=== PATIENT | female | born 1955 | race Caucasian/White ===

== ENCOUNTER 2019-04-01 06:55 | Day surgery (SDC) | payer OTHER ==
[2019-03-29 13:16] VITALS: BMI 32.5
[~2019-04-01] VITALS: Ht 162.6 cm; Wt 84.2 kg
[2019-04-01] VITALS (10 sets, daily range): BP systolic 123–159; BP diastolic 54–75; PULSE 42–46; RESP 11–18; Ht 162.6 cm; Wt 84.2 kg
[~2019-04-01 06:55] MED LIST: DIVA-16 PO; FLUO20CA38 PO; GLYB5TAB3 PO; LEVO100T8 PO; LOVA20TA PO; METF-480 PO; MIRT30TA5 PO; THIO5CAP2 PO; TRAM50TA2 PO
[2019-04-01] MEDS ORDERED: SOD CHLORIDE 0.9% 1,000 ML IV ONE (07:30)
[2019-04-01] MEDS ORDERED: CEFAZOLIN 2 GM/50 ML (PMX) 50 ML IVPB ONE (07:30)
[2019-04-01] MEDS ORDERED: GLIP5TAB13 PO (08:36)
[2019-04-01] MEDS ORDERED: NOVMIX SC (08:37)
[2019-04-01] MEDS ORDERED: LANT3I SC (08:37)
[2019-04-01] MEDS ORDERED: METF850T13 PO (08:38)
[2019-04-01] MEDS ORDERED: FLUO40CA10 PO (08:39)
[2019-04-01] MEDS ORDERED: THIO5CAP2 PO (08:40)
[2019-04-01] MEDS ORDERED: DIVA-73 PO (08:40)
[2019-04-01] MEDS ORDERED: ASPI81TA52 PO (08:41)
[2019-04-01] MEDS ORDERED: FURO20TA3 PO (08:41)
[2019-04-01] MEDS ORDERED: MULTI PO (08:42)
[2019-04-01] MEDS ORDERED: LOSA100T15 PO (08:42)
[2019-04-01] MEDS ORDERED: ATOR40TA68 PO (08:43)
[2019-04-01] MEDS ORDERED: CLOP75TA27 PO (08:44)
[2019-04-01] MEDS ORDERED: ERGO2000 PO (08:45)
[2019-04-01] MEDS ORDERED: MIRT30TA5 PO (08:46)
[2019-04-01] MEDS ORDERED: TOPI200T8 PO (08:47)
[2019-04-01] MEDS ORDERED: GABA300C16 PO (08:48)
[2019-04-01] MEDS ORDERED: LEVO100T82 PO (08:49)
[2019-04-01] MEDS ORDERED: SULI200T3 PO (08:50)
[2019-04-01] MEDS ORDERED: BUPIVACAINE 0.25% (MPF) 30 ML INJ ONE (10:19)
--- NOTE | 2019-04-01 10:19 | PREAC ---
Date/Time of Note Date/Time of Note DATE: 04/01/19 TIME: 10:17 Anesthesia Eval and Record Evaluation Time Pre-Procedure Interview DATE: 04/01/19 TIME: 10:17 Age 64 Sex female NPO: 8 hrs Preoperative diagnosis neck mass Planned procedure excision of neck mass Past Medical History Past Medical History: Includes Cardio: Dyslipidemia, CAD Endo: Diabetes, Hypothyroid Musculoskeletal: Osteoarthritis Surgery & Anesthesia Issues No known issue Meds Anticoagulation: Yes Beta Sarah within 24 hr: No Reason Beta Sarah not given: Pt. not on B-Sarah Reported Medications Sulindac* (Clinoril*) 200 Mg Tablet, 200 MG PO BID, TAB 04/01/19 Levothyroxine Sodium* (Levoxyl*) 100 Mcg Tablet, 100 MCG PO BEFORE BREAKFAST, #30 TAB 04/01/19 Gabapentin* (Gabapentin*) 300 Mg Capsule, 1800 MG PO QHS, #60 CAP 04/01/19 Topiramate* (Topiramate*) 200 Mg Tablet, 200 MG PO BID, TAB 04/01/19 Mirtazapine* (Mirtazapine*) 30 Mg Tablet, 30 MG PO HS, TAB 04/01/19 Ergocalciferol (Vitamin D2) (VITAMIN D2) 2,000 Unit Tablet, 2000 UNIT PO DAILY, TAB 04/01/19 Clopidogrel Bisulfate (Clopidogrel) 75 Mg Tablet, 75 MG PO DAILY, #30 TAB 04/01/19 Atorvastatin* (Atorvastatin*) 40 Mg Tablet, 40 MG PO QHS, #30 TAB 04/01/19 Losartan Potassium* (Losartan Potassium*) 100 Mg Tablet, 100 MG PO DAILY, TAB 04/01/19 Multivitamins* (Theragran*) 1 Tab Tab, 1 TAB PO DAILY, TAB 04/01/19 Aspirin (Low Dose Aspirin) 81 Mg Tablet.dr, 81 MG PO DAILY, #30 TAB 04/01/19 Furosemide* (Furosemide*) 20 Mg Tablet, 20 MG PO DAILY, #60 TAB 04/01/19 Thiothixene* (Navane*) 5 Mg Cap, 5 MG PO DAILY, CAP 04/01/19 Divalproex Sodium* (Depakote ER*) 250 Mg Tabsr, 1500 MG PO QHS, #90 TAB.SA 04/01/19 Fluoxetine Hcl* (Prozac*) 40 Mg Capsule, 40 MG PO DAILY, CAP 04/01/19 Metformin Hcl* (Metformin Hcl*) 850 Mg Tablet, 850 MG PO WITH BREAKFAST DINNE, #60 TAB 04/01/19 Insulin Glargine* (Lantus*) 100 Unit/Ml Soln, 100 UNIT SC BID, #1 VIAL 04/01/19 Insulin Aspart (Novolog Mix (70/30)) 100 Units/Ml Soln, 30 SC BID, VIAL 04/01/19 Glipizide* (Glipizide*) 5 Mg Tablet, 5 MG PO BID, TAB 04/01/19 Discontinued Reported Medications Fluoxetine Hcl* (Prozac*) 20 Mg Capsule, 20 MG PO 2 TABS DAILY 03/31/11 Divalproex Sodium* (Divalproex Sodium*) 500 Mg Tablet.dr, 500 MG PO TID 03/31/11 Mirtazapine* (Mirtazapine*) 30 Mg Tablet, 30 MG PO HS 03/31/11 Tramadol HCl (Tramadol HCl) 50 Mg Tablet, 50 MG PO Q6 03/31/11 Thiothixene* (Navane*) 5 Mg Cap, 5 MG PO PRN 03/31/11 Lovastatin* (Lovastatin*) 20 Mg Tablet, 20 MG PO DAILY 03/31/11 Levothyroxine Sodium* (Levothyroxine Sodium*) 100 Mcg Tablet, 100 MCG PO DAILY 03/31/11 Glyburide* (Glyburide*) 5 Mg Tablet, 5 MG PO 2 TABS BID 03/31/11 Metformin* (Glucophage*) 850 Mg Tablet, 850 MG PO TID 03/31/11 Current Medications Sodium Chloride 1,000 ml @ 75 mls/hr [id number] ONCE IV ; Start 04/01/19 at 07:30; Stop 04/01/19 at 20:49 Meds reviewed: Yes Allergies Uncoded Allergies: CLOTH TAPE, PAPER TAPE (Allergy, Unknown, rash, 04/01/19) Allergies Reviewed: Yes Labs/Studies Labs Reviewed: Reviewed by anesthesiologist Result Diagram: 04/01/1982304/01/1924 Laboratory Tests 04/01/19 08:24 test: N/A Pre-procedure Exam Last vitals Vital Signs Date Temp Pulse Resp B/P (MAP) Pulse Ox O2 O2 Flow FiO2 Time Delivery Rate 04/01/19 97.8 42 18 135/63 98 09:33 (87) Airway: Adequate mouth opening, Adequate thyromental dist Mallampati: Mallampati IV Teeth: Normal Lung: Normal Heart: Normal ASA Physical Status ASA physical status: 3 Emergency: None Pre-operative Attestations Prior to commencing anesthesia and surgery, the patient was re-evaluated, there was verification of: *The patient's identity *The results of appropriate recent lab work and preoperative vital signs *The above evaluation not changing prior to induction *Anesthetic plan, risk benefits, alternative and complications discussed with patient/family; questions answered; patient/family understands, accepts and wishes to proceed. CAMRYN TROY DO Apr 01, 2019 10:19
[2019-04-01] MEDS ORDERED: HYDROmorphONE 1 MG/5 ML IV SYRINGE IV PRN ×2 (10:30)
[2019-04-01] MEDS ORDERED: ONDANSETRON 4 MG INJ IV PRN (10:30)
[2019-04-01] MEDS ORDERED: hydrALAzine 20 MG INJ IV PRN (10:30)
[2019-04-01] MEDS ORDERED: LABETALOL HCL 20MG INJ IV PRN (10:30)
[2019-04-01] MEDS ORDERED: FENTAnyl 50 MCG/ML VIAL ONE (10:41)
[2019-04-01] MEDS ORDERED: MIDAZOLAM 1 MG/ML 2 ML INJ ONE (10:42)
[2019-04-01] MEDS ORDERED: KETAMINE (50 MG/ML) 10 ML VIAL ONE (10:42)
[2019-04-01] MEDS ORDERED: LIDOCAINE 2% (MDV) 20 ML INJ ONE (10:51)
[2019-04-01] MEDS ORDERED: HYDROCODONE/APAP (5/325) TAB PO ONE (11:00)
--- NOTE | 2019-04-01 11:01 | OPR ---
Date/Time of Note Date/Time of Note DATE: 04/01/19 TIME: 10:58 Operative Report Procedure Date: Apr 01, 2019 Preoperative Diagnosis left posterior neck mass Postoperative Diagnosis same Operation/Procedure Performed 1. excision of left posterior neck mass 3 cm mass 3 cm incision 2. localized adjacent tissue transfer with the use of skin flaps 6 sq cm defect of neck 3. therapeutic injection of subcutaneous local anesthesia Surgeon see signature line Nan[employer] Engineering Technician none Anesthesia Type: MAC Estimated Blood Loss: 0 - 10 ml's Transfusion none Specimen posterior neck mass Grafts/Implants none Complications none Pt Condition Post Procedure: stable Indications This is a 64-year-old female with a left posterior neck mass. She required surgical excision of the mass. Risks alternatives benefits and personal were discussed the patient. Patient expresses understanding and consents to the operation. Procedure Description Patient is taken to the OR and prepped and draped in usual sterile fashion. Surgical time was performed. IV antibiotics given. Therapeutic subcutaneous local anesthesia was injected throughout the area of the lesion. Elliptical incision was made with a 15 blade. Dissection with cautery skin onto the mass and the mass was circumferentially excised. Good hemostasis status. Due to tissue defect localization just transfer with use of skin flaps was performed. Multilayer closed with interrupted 3-0 Vicryl and skin john. Dry dressings were applied. Airam SANCHEZ Apr 01, 2019 11:00
--- NOTE | 2019-04-01 11:16 | PAC ---
Date/Time of Note Date/Time of Note DATE: 04/01/19 TIME: 11:15 Post-Anesthesia Notes Post-Anesthesia Note Last documented vital signs Vital Signs Date Temp Pulse Resp B/P (MAP) Pulse Ox O2 O2 Flow FiO2 Time Delivery Rate 04/01/19 98 42 20 139/75 98 1115 Activity: WNL Respiratory function: WNL Cardiovascular function: WNL Mental status: Baseline Pain reasonably controlled: Yes Hydration appropriate: Yes Nausea/Vomiting absent: Yes CAMRYN TROY DO Apr 01, 2019 11:16
--- NOTE | 2019-04-08 09:25 | RADRPT ---
Vent Rate: 38 bpm RR Interval: 1576 msec NH Interval: 181 msec QRS Duration: 90 msec QT Interval: 515 msec QTC Interval: 410 msec P-R-T [place]: 54 - 50 - 48 degrees Marked Sinus bradycardia...rate< 50 Electronically Signed By: Servando Arango
== END 2019-04-01 13:03 | disposition home or self-care (01) ==
LOC: SDS 06:55
PROVIDERS: ATTEND Surgery
DX: E78.5 Hyperlipidemia, unspecified (principal); E03.9 Hypothyroidism, unspecified; E11.9 Type 2 diabetes mellitus without complications; I25.10 Atherosclerotic heart disease of native coronary artery without angina pectoris; Z79.82 Long term (current) use of aspirin; Z79.84 Long term (current) use of oral hypoglycemic drugs; Z79.4 Long term (current) use of insulin
CPT/HCPCS: 14040; 71045; 80053; 82962; 85025; 85610; 85730; 88307; 93005; J0690; J2250; J3010